=== PATIENT | female | born 1960 | race Two or more races ===

== ENCOUNTER 2017-04-07 10:05 | Emergency (ER) | payer OTHER ==
[2017-04-07 10:17] VITALS: TEMP 99.2; BMI 31.8
--- NOTE | 2017-04-07 11:01 | PDOC ---
History of Present Illness - General Chief Complaint: Pain Stated Complaint: flank PAIN Time Seen by Provider: 04/07/17 11:00 History Source: Patient Exam Limitations: No Limitations - History of Present Illness Initial Comments: CHIEF COMPLAINT: 56 y/o afebrile female with no significant PMH c/o left side and back pain since last night. HISTORY OF PRESENT ILLNESS: The patient states that the pain comes and goes and she is more comfortable standing up. She saw her PCP (in [facility]) 4 days ago and was told she had blood in her urine and was given a prescription for a kidney ultrasound which she did not have done yet. She also admits to "cold sweats". She denies fever, LIZ, n/v/d, CP, SOB, abd pain, dysuria, increased urinary frequency. She hasn't taken anything for the pain. Vital signs on arrival are notable for pulse of 96. REVIEW OF SYSTEMS: GENERAL/CONSTITUTIONAL: No fever. Subjective chills. No weakness. No weight change. HEAD, EYES, EARS, NOSE AND THROAT: No change in vision. No ear pain or discharge. No sore throat. CARDIOVASCULAR: No chest pain or shortness of breath. RESPIRATORY: No cough, wheezing, or hemoptysis. GASTROINTESTINAL: No abd pain, nausea, vomiting, diarrhea. . GENITOURINARY: +blood in urine. No dysuria, frequency, or change in urination. MUSCULOSKELETAL: +left side and back pain. No joint or muscle swelling or pain. No neck pain. SKIN: No rash or easy bruising. NEUROLOGIC: No headache, vertigo, loss of consciousness, or loss of sensation. PHYSICAL EXAM: GENERAL: The patient is awake, alert, and fully oriented, in no acute distress. She is well appearing, ambulatory, pacing up and down the room holding her left side. HEAD: Normal with no signs of trauma. ENT: Pupils equal, round and reactive to light, extraocular movements intact, sclera anicteric, conjunctiva clear. Neck supple. LUNGS: Clear to auscultation bilaterally. Normal excursion. No respiratory distress or use of accessory muscles. CV: RRR, S1/S2, no MRG. Cap refill < 2 sec. ABDOMEN: Soft, non-distended, non-tender even to deep palpation, no hepatomegaly or splenomegaly, no masses. +left flank pain with palpation. Mild suprapubic TTP. BACK: +left CVA TTP. EXTREMITIES: Normal range of motion, no edema. NEUROLOGICAL: Normal speech, normal gait. CN II-XII grossly intact. PSYCH: Normal mood, normal affect. SKIN: Warm, dry, normal turgor, no rashes or lesions noted. Past History - Past Medical History Allergies/Adverse Reactions: Allergies Allergy/AdvReac Type Severity Reaction Status Date / Time No Known Allergies Allergy Verified 04/07/17 10:13 Home Medications: Ambulatory Orders Ibuprofen [Motrin -] 600 mg PO Q6H #15 tablet 04/07/17 COPD: No HTN: Yes - Suicide/Smoking/Psychosocial Hx Smoking History: Never smoked Have you smoked in the past 12 months: No Information on smoking cessation initiated: No Hx Alcohol Use: No Drug/Substance Use Hx: No *Physical Exam - Vital Signs Last Vital Signs Temp Pulse Resp BP Pulse Ox 99.2 F 96 H 18 169/102 100 04/07/17 10:15 04/07/17 10:15 04/07/17 10:15 04/07/17 10:15 04/07/17 10:15 ED Treatment Course - LABORATORY CBC & Chemistry Diagram: 04/07/17 11:18 04/07/17 11:18 Medical Decision Making - Medical Decision Making A/P: 56 y/o female with possible renal colic vs musculoskeletal back pain. Plan is as follows: 1. labs 2. UA/culture 3. IV toradol 4. IV fluids 5. Renal ultrasound Renal Ultrasound IMPRESSION: No hydronephrosis. No evidence of shadowing intrarenal calculus. CT is more sensitive in detecting small renal calculi. Partially imaged complex cystic lesion in the right hepatic lobe. Ordered Spiral Ct. Spiral CT IMPRESSION: No CT evidence of obstructive uropathy. Punctate bilateral nonobstructing renal calculi are visualized. Mild focal right renal upper pole cortical scarring. There is equivocal mild concentric diffuse wall edema of the ascending, transverse and descending colon as well as the terminal ileum. Correlate clinically in regards to possible colitis. A 4.3cm right hepatic lobe cyst is noted. The patient states she feels much better after having toradol. The patient was given all of her results. She denies diarrhea, constipation. She denies history of colitis. She wants to go home. Suggested she take 600mg of ibuprofen every 6 hours with food for pain, drink plenty of water and f/u wiht her doctor within 1 week. Instructed her to return to the ER with any worsening or concerning symptoms. The patient verbalizes understanding of all instructions, has no further questions and is awaiting discharge. *DC/Admit/Observation/Transfer Diagnosis at time of Disposition: Renal colic on left side, Hepatic cyst - Discharge Dispostion Disposition: HOME Condition at time of disposition: Improved - Referrals Referrals: STAFF,NOT ON [Primary Care Provider] - - Patient Instructions Printed Discharge Instructions: Kidney Stones -- Adult Additional Instructions: Discharge Instructions: -Take 600mg of Ibuprofen every 6 hours for pain with food -Drink at least 64oz of water daily -Your CAT SCAN showed a cyst on your liver. THIS COULD BE SERIOUS. You need to have a repeat ultrasound of your liver in 3 months to compare. -Please follow up with your doctor as soon as possible for follow up. -Return to the ER with any worsening or concerning symptoms. - Post Discharge Activity
[2017-04-07] MEDS ORDERED: SODIUM CHLORIDE 1,000 ML IV STA (11:06)
[2017-04-07] MEDS ORDERED: KETOROLAC TROMETHAMINE 30 MG/1 ML VIAL IVPUSH ONE (11:07)
[2017-04-07] MEDS ORDERED: KETOROLAC TROMETHAMINE 30 MG/1 ML VIAL ONE (11:42)
[2017-04-07 12:01] LABS: BASO % 0.9 % (0-2.0); EOS % 1.7 % (0-4.5); HEMATOCRIT 40.8 % (32.4-45.2); LYMPH % 21.2 % (8-40); MCH 29.1 pg (25.7-33.7); MCHC 31.9 g/dl (32.0-36.0); MEAN CELL VOLUME 91.1 fl (80-96); MEAN PLT VOLUME 8.9 fl (7.5-11.1); MONO % 7.1 % (3.8-10.2); NEUT % 69.1 % (42.8-82.8); PLATELET COUNT 280 K/MM3 (134-434); RBC 4.48 M/mm3 (3.60-5.2); RDW 14.3 % (11.6-15.6); WHITE BLOOD COUNT 11.1 K/mm3 (4.0-10.0)
[2017-04-07 12:22] LABS: URINE APPEARANCE CLEAR; URINE BILIRUBIN NEGATIVE (NEGATIVE); URINE BLOOD 2+ (NEGATIVE); URINE COLOR YELLOW; URINE GLUCOSE (UA) NEGATIVE (NEGATIVE); URINE KETONE TRACE (NEGATIVE); URINE LEUK ESTERASE NEGATIVE (NEGATIVE); URINE NITRITE NEGATIVE (NEGATIVE); URINE PROTEIN NEGATIVE (NEGATIVE); URINE UROBILINOGEN NEGATIVE mg/dL (0.2-1.0)
[2017-04-07 12:32] LABS: ALBUMIN 3.8 g/dl (3.4-5.0); ALK PHOS 100 U/L (45-117); ANION GAP 6 (8-16); BILIRUBIN,TOTAL 0.3 mg/dL (0.2-1.0); BLOOD UREA NITROGEN 20 mg/dL (7-18); CALCIUM 8.9 mg/dL (8.5-10.1); CHLORIDE 106 mmol/L (98-107); CO2 28 mmol/L (21-32); CREATININE 0.6 mg/dL (0.55-1.02); GLUCOSE,RANDOM 91 mg/dL (74-106); POTASSIUM 4.5 mmol/L (3.5-5.1); SGOT/AST 8 U/L (15-37); SGPT/ALT 22 U/L (12-78); SODIUM 140 mmol/L (136-145); TOT PROT 7.7 g/dl (6.4-8.2)
[2017-04-07 14:15] LABS: EPI CELLS RARE /HPF (FEW); URINE MUCUS FEW
[2017-04-07 16:48] VITALS: BP 164/78; PULSE 85
== END 2017-04-07 17:16 | disposition home or self-care (01) ==
LOC: JER 10:05
PROC: 3E0337Z Introduction of Electrolytic and Water Balance Substance into Peripheral Vein, Percutaneous Approach (ICD-10-PCS; principal; 2017-04-07)
PROC: 3E0333Z Introduction of Anti-inflammatory into Peripheral Vein, Percutaneous Approach (ICD-10-PCS; 2017-04-07)
DX: N20.0 Calculus of kidney (principal); K76.89 Other specified diseases of liver
CPT/HCPCS: 36415; 74176; 76775-TC; 80053; 81003; 81015; 85025; 87086; 99284-25